=== PATIENT | female | born 1965 | race Caucasian/White ===

== ENCOUNTER 2019-06-15 21:09 | Emergency (ER) | payer BC ==
[~2019-06-15] VITALS: Ht 165.1 cm; Wt 95.2 kg
[~2019-06-15 21:09] MED LIST: HYDACE5 PO; IBUP600 PO; NAPR500ERA
[2019-06-16] MEDS ORDERED: Bactrim Ds Tab1 EACH PO (00:17)
== END 2019-06-16 00:40 | disposition home or self-care (01) ==
LOC: ER 21:09
DX: L05.01 Pilonidal cyst with abscess (principal); Z79.899 Other long term (current) drug therapy; Z79.891 Long term (current) use of opiate analgesic; F17.210 Nicotine dependence, cigarettes, uncomplicated
CPT/HCPCS: 10061; 99283-25

== ENCOUNTER 2019-07-30 00:16 | Day surgery (SDC) | payer BC ==
[~2019-07-30 00:16] MED LIST changes: +Bactrim Ds Tab1 EACH PO
== END 2019-07-30 16:42 | disposition home or self-care (01) ==
LOC: ATC 00:16
DX: K50.10 Crohn's disease of large intestine without complications (principal); Z79.899 Other long term (current) drug therapy; Z91.048 Other nonmedicinal substance allergy status; Z88.8 Allergy status to other drugs, medicaments and biological substances
CPT/HCPCS: 96413; 96415; A9270; J1745; J7050; Q0163

== ENCOUNTER 2019-08-29 15:05 | Emergency (ER) | payer BC ==
[~2019-08-29] VITALS: Ht 165.1 cm; Wt 96.6 kg
[2019-08-29] MEDS ORDERED: Bactrim Ds Tab1 EACH PO (17:00)
[2019-08-29] MEDS ORDERED: Roxicodone5 MG PO (17:00)
[2019-08-29] MEDS ORDERED: Keflex500 MG PO (17:00)
== END 2019-08-29 17:08 | disposition home or self-care (01) ==
LOC: ER 15:05
DX: L02.31 Cutaneous abscess of buttock (principal); L03.317 Cellulitis of buttock; F17.200 Nicotine dependence, unspecified, uncomplicated
CPT/HCPCS: 99283

== ENCOUNTER 2019-09-10 | Day surgery (SDC) | payer BC ==
[~2019-09-10] MED LIST changes: +Keflex500 MG PO; +Roxicodone5 MG PO
[2019-09-10] MEDS ORDERED: Remicade100 MG IV (14:16)
== END 2019-09-10 16:20 | disposition home or self-care (01) ==
LOC: ATC
DX: K50.10 Crohn's disease of large intestine without complications (principal); Z79.899 Other long term (current) drug therapy; Z91.048 Other nonmedicinal substance allergy status
CPT/HCPCS: 96413; 96415; A9270; J1745; J7050; Q0163

== ENCOUNTER 2019-10-22 00:06 | Day surgery (SDC) | payer BC ==
[~2019-10-22 00:06] MED LIST changes: +Remicade100 MG IV
[2019-10-22] MEDS ORDERED: LISI5 PO (14:00)
== END 2019-10-22 16:52 | disposition home or self-care (01) ==
LOC: ATC 00:06
DX: K50.10 Crohn's disease of large intestine without complications (principal); I10 Essential (primary) hypertension; L40.9 Psoriasis, unspecified; G40.909 Epilepsy, unspecified, not intractable, without status epilepticus; G89.29 Other chronic pain; M54.9 Dorsalgia, unspecified; F17.200 Nicotine dependence, unspecified, uncomplicated; Z91.048 Other nonmedicinal substance allergy status; Z79.899 Other long term (current) drug therapy
CPT/HCPCS: A9270; J1745; J7050; Q0163

== ENCOUNTER 2019-10-29 12:49 | Emergency (ER) | payer BC ==
[~2019-10-29] VITALS: Ht 165.1 cm; Wt 96.2 kg
[~2019-10-29 12:49] MED LIST changes: +LISI5 PO
[2019-10-29] MEDS ORDERED: CEPH500 PO (13:34)
[2019-10-29] MEDS ORDERED: Bactrim Ds Tab1 EACH PO (13:34)
== END 2019-10-29 14:14 | disposition home or self-care (01) ==
LOC: ER 12:49
DX: L02.11 Cutaneous abscess of neck (principal); Z79.899 Other long term (current) drug therapy; F17.200 Nicotine dependence, unspecified, uncomplicated
CPT/HCPCS: 10060; 99283-25

== ENCOUNTER → 2019-10-31 | Outpatient (CLI) | payer BC ==
[~2019-10-31] MED LIST changes: +CEPH500 PO; +LOSA25 PO
== END | disposition home or self-care (01) ==
LOC: LAB SHORT 14:50 → LAB EV 14:50
DX: L02.91 Cutaneous abscess, unspecified (principal)
CPT/HCPCS: 87070; 87077; 87186; 87205

== ENCOUNTER 2019-12-03 00:03 | Day surgery (SDC) | payer BC ==
[~2019-12-03 00:03] MED LIST changes: -LOSA25 PO
[2019-12-03] MEDS ORDERED: LOSA25 PO (14:13)
--- NOTE | 2019-12-10 09:30 | NUR ---
STOP TIME: STOP TIME OF REMICADE WAS 6972
== END 2019-12-03 16:54 | disposition home or self-care (01) ==
LOC: ATC 00:03
DX: K50.10 Crohn's disease of large intestine without complications (principal); L40.9 Psoriasis, unspecified; I10 Essential (primary) hypertension; G40.909 Epilepsy, unspecified, not intractable, without status epilepticus; G89.29 Other chronic pain; M54.9 Dorsalgia, unspecified; Z79.899 Other long term (current) drug therapy; Z90.710 Acquired absence of both cervix and uterus; Z91.048 Other nonmedicinal substance allergy status
CPT/HCPCS: 96413; 96415; J1745; J7050

== ENCOUNTER 2020-01-21 00:06 | Day surgery (SDC) | payer BC ==
[~2020-01-21 00:06] MED LIST changes: +LOSA25 PO
== END 2020-01-21 10:48 | disposition home or self-care (01) ==
LOC: ATC 00:06
DX: K50.10 Crohn's disease of large intestine without complications (principal); Z88.8 Allergy status to other drugs, medicaments and biological substances; F17.220 Nicotine dependence, chewing tobacco, uncomplicated
CPT/HCPCS: 96413; 96415; J1745; J7050

== ENCOUNTER 2020-06-02 00:38 | Day surgery (SDC) | payer BC | END 2020-06-02 10:42 | disposition home or self-care (01) | LOC: ATC 00:38 | DX: K50.10 Crohn's disease of large intestine without complications (principal); Z88.8 Allergy status to other drugs, medicaments and biological substances | CPT/HCPCS: 96413; 96415; J1745; J7050 ==

== ENCOUNTER 2020-07-22 00:14 | Day surgery (SDC) | payer BC | END 2020-07-22 12:31 | disposition home or self-care (01) | LOC: ATC 00:14 | DX: K50.10 Crohn's disease of large intestine without complications (principal); F17.200 Nicotine dependence, unspecified, uncomplicated; Z88.8 Allergy status to other drugs, medicaments and biological substances; Z79.899 Other long term (current) drug therapy | CPT/HCPCS: 96365; 96366; J1745; J7050 ==

== ENCOUNTER 2020-09-08 00:42 | Day surgery (SDC) | payer BC | END 2020-09-08 14:20 | disposition home or self-care (01) | LOC: ATC 00:42 | DX: K50.10 Crohn's disease of large intestine without complications (principal); Z88.8 Allergy status to other drugs, medicaments and biological substances | CPT/HCPCS: 96413; 96415; J1745; J7050 ==

== ENCOUNTER 2020-10-25 00:21 | Day surgery (SDC) | payer BC | END 2020-10-25 16:22 | disposition home or self-care (01) | LOC: ATC 00:21 | DX: K50.10 Crohn's disease of large intestine without complications (principal); I10 Essential (primary) hypertension; G40.909 Epilepsy, unspecified, not intractable, without status epilepticus; Z79.899 Other long term (current) drug therapy; Z91.048 Other nonmedicinal substance allergy status | CPT/HCPCS: 96413; 96415; J1745; J7050 ==

== ENCOUNTER 2020-12-06 00:18 | Day surgery (SDC) | payer BC, SELFPAY ==
--- NOTE | 2020-12-06 08:15 | NUR ---
PT TOOK OWN PRE-MEDICATIONS AT HOME.
== END 2020-12-06 10:33 | disposition home or self-care (01) ==
LOC: ATC 00:18
DX: K50.10 Crohn's disease of large intestine without complications (principal); L40.9 Psoriasis, unspecified; M19.90 Unspecified osteoarthritis, unspecified site; G40.909 Epilepsy, unspecified, not intractable, without status epilepticus; F17.290 Nicotine dependence, other tobacco product, uncomplicated; Z91.048 Other nonmedicinal substance allergy status; Z79.899 Other long term (current) drug therapy
CPT/HCPCS: 96413; 96415; J1745; J7050

== ENCOUNTER 2021-01-17 00:19 | Day surgery (SDC) | payer BC, SELFPAY ==
[2021-01-17] MEDS ORDERED: ACET325 PO (13:48)
[2021-01-17] MEDS ORDERED: MULVITA PO (13:49)
[2021-01-17] MEDS ORDERED: THERA-D2000 UNIT PO (13:49)
== END 2021-01-17 16:21 | disposition home or self-care (01) ==
LOC: ATC 00:19
DX: K50.10 Crohn's disease of large intestine without complications (principal); L40.9 Psoriasis, unspecified; M19.90 Unspecified osteoarthritis, unspecified site; F17.290 Nicotine dependence, other tobacco product, uncomplicated; Z91.09 Other allergy status, other than to drugs and biological substances; Z79.899 Other long term (current) drug therapy
CPT/HCPCS: 96413; 96415; A9270; J1745; J7050

== ENCOUNTER 2021-03-07 00:31 | Day surgery (SDC) | payer BC ==
[~2021-03-07 00:31] MED LIST changes: +ACET325 PO; +MULVITA PO; +THERA-D2000 UNIT PO
--- NOTE | 2021-03-07 14:52 | NUR ---
PT TOOK HER TYLENOL AT HOME PRIOR TO COMING INTO THE [facility] FOR HER REMICADE INFUSION. REC'D TELEPHONE ORDER FOR PT TO RECEIVE REMICADE DESPITE TAKING ANTIBIOTICS AT THIS TIME PER DR. SALDANA.
== END 2021-03-07 17:02 | disposition home or self-care (01) ==
LOC: ATC 00:31
DX: K50.10 Crohn's disease of large intestine without complications (principal); L40.9 Psoriasis, unspecified; M19.90 Unspecified osteoarthritis, unspecified site; F17.290 Nicotine dependence, other tobacco product, uncomplicated; Z91.09 Other allergy status, other than to drugs and biological substances; Z79.899 Other long term (current) drug therapy
CPT/HCPCS: 96413; 96415; A9270; J1745; J7050

== ENCOUNTER 2021-04-22 00:45 | Day surgery (SDC) | payer BC ==
[2021-04-22] MEDS ORDERED: GABA300 PO (08:21)
[2021-04-22] MEDS ORDERED: GABA300 (08:21)
== END 2021-04-22 11:23 | disposition home or self-care (01) ==
LOC: ATC 00:45
DX: K50.10 Crohn's disease of large intestine without complications (principal); F17.210 Nicotine dependence, cigarettes, uncomplicated; Z79.899 Other long term (current) drug therapy
CPT/HCPCS: 96413; 96415; J1745; J7050

== ENCOUNTER 2021-06-03 00:21 | Day surgery (SDC) | payer BC ==
[~2021-06-03 00:21] MED LIST changes: +GABA300; +GABA300 PO
== END 2021-06-03 10:55 | disposition home or self-care (01) ==
LOC: ATC 00:21
DX: K50.10 Crohn's disease of large intestine without complications (principal); F17.210 Nicotine dependence, cigarettes, uncomplicated
CPT/HCPCS: 96413; 96415; J1745; J7050

== ENCOUNTER 2021-07-27 00:46 | Day surgery (SDC) | payer BC, OTHER | END 2021-07-27 16:16 | disposition home or self-care (01) | LOC: ATC 00:46 | DX: K50.10 Crohn's disease of large intestine without complications (principal); F17.290 Nicotine dependence, other tobacco product, uncomplicated; M19.90 Unspecified osteoarthritis, unspecified site; Z79.899 Other long term (current) drug therapy; Z90.49 Acquired absence of other specified parts of digestive tract | CPT/HCPCS: 96413; 96415; J1745; J7050 ==

== ENCOUNTER 2021-09-05 02:40 | Day surgery (SDC) | payer BC ==
[~2021-09-05] VITALS: Wt 103.6 kg
== END 2021-09-05 11:10 | disposition home or self-care (01) ==
LOC: ATC 02:40
DX: K50.10 Crohn's disease of large intestine without complications (principal)
CPT/HCPCS: 96413; 96415

== ENCOUNTER 2021-12-09 05:51 | Day surgery (SDC) | payer BC ==
[~2021-12-09] VITALS: Wt 106.3 kg
== END 2021-12-09 15:36 | disposition home or self-care (01) ==
LOC: ATC 05:51
DX: K50.10 Crohn's disease of large intestine without complications (principal); F17.210 Nicotine dependence, cigarettes, uncomplicated; Z90.49 Acquired absence of other specified parts of digestive tract
CPT/HCPCS: J1745; J7050

== ENCOUNTER 2022-01-23 03:21 | Day surgery (SDC) | payer BC ==
[~2022-01-23] VITALS: Wt 108.1 kg
--- NOTE | 2022-01-23 13:15 | NUR ---
PT TOOK HER OWN TYLENOL AT HOME PRIOR TO COMING INTO THE [facility].
[2022-01-23] MEDS ORDERED: INFLECTRA100 MG IV (14:48)
== END 2022-01-23 15:59 | disposition home or self-care (01) ==
LOC: ATC 03:21
DX: K50.10 Crohn's disease of large intestine without complications (principal); Z88.8 Allergy status to other drugs, medicaments and biological substances
CPT/HCPCS: J7050; Q5103

== ENCOUNTER → 2022-02-13 | Outpatient (CLI) | payer BC ==
[~2022-02-13] MED LIST changes: +INFLECTRA100 MG IV
== END ==
LOC: LAB SHORT 18:28 → LAB 18:28
DX: D48.5 Neoplasm of uncertain behavior of skin (principal); D22.5 Melanocytic nevi of trunk; D22.62 Melanocytic nevi of left upper limb, including shoulder; L57.8 Other skin changes due to chronic exposure to nonionizing radiation; L40.0 Psoriasis vulgaris; L08.9 Local infection of the skin and subcutaneous tissue, unspecified; L73.2 Hidradenitis suppurativa; B35.3 Tinea pedis; Z71.89 Other specified counseling
CPT/HCPCS: 87070; 87077; 87147; 87186; 87205

== ENCOUNTER 2022-03-06 08:27 | Day surgery (SDC) | payer BC | END 2022-03-06 12:06 | disposition home or self-care (01) | LOC: LAB 08:27 | DX: K50.10 Crohn's disease of large intestine without complications (principal); F17.200 Nicotine dependence, unspecified, uncomplicated | CPT/HCPCS: 96413; 96415; A9270; J7050; Q5103 ==

== ENCOUNTER 2022-06-03 17:17 | Emergency (ER) | payer BC ==
[~2022-06-03] VITALS: Ht 165.1 cm; Wt 108.0 kg
== END 2022-06-03 22:15 | disposition home or self-care (01) ==
LOC: ER 17:17
DX: S52.532A Colles' fracture of left radius, initial encounter for closed fracture (principal); S52.612A Displaced fracture of left ulna styloid process, initial encounter for closed fracture; S00.03XA Contusion of scalp, initial encounter; S80.212A Abrasion, left knee, initial encounter; I10 Essential (primary) hypertension; R40.2413 Glasgow coma scale score 13-15, at hospital admission; F17.200 Nicotine dependence, unspecified, uncomplicated; Z79.899 Other long term (current) drug therapy; W18.30XA Fall on same level, unspecified, initial encounter
CPT/HCPCS: 73110; 73562-LT; 76000; A9270; J2405; J2704; J3010; J7030

== ENCOUNTER 2022-07-10 04:00 | Day surgery (SDC) | payer BC | END 2022-07-10 10:18 | disposition home or self-care (01) | LOC: ATC 04:00 | DX: K50.10 Crohn's disease of large intestine without complications (principal) | CPT/HCPCS: 96413; 96415; J7050; Q5103 ==

== ENCOUNTER 2022-09-11 01:11 | Day surgery (SDC) | payer BC | END 2022-09-11 12:03 | disposition home or self-care (01) | LOC: ATC 01:11 | DX: K50.10 Crohn's disease of large intestine without complications (principal); M19.90 Unspecified osteoarthritis, unspecified site; Z91.048 Other nonmedicinal substance allergy status; Z88.8 Allergy status to other drugs, medicaments and biological substances | CPT/HCPCS: J7050; Q5103 ==

== ENCOUNTER 2022-10-20 00:12 | Day surgery (SDC) | payer BC ==
[~2022-10-20] VITALS: Wt 104.5 kg
== END 2022-10-20 17:06 | disposition home or self-care (01) ==
LOC: ATC 00:12
DX: K50.10 Crohn's disease of large intestine without complications (principal); M19.90 Unspecified osteoarthritis, unspecified site; F17.200 Nicotine dependence, unspecified, uncomplicated; Z91.048 Other nonmedicinal substance allergy status; Z88.8 Allergy status to other drugs, medicaments and biological substances
CPT/HCPCS: J7050; Q5103

== ENCOUNTER 2022-12-08 02:18 | Day surgery (SDC) | payer BC | END 2022-12-08 17:15 | disposition home or self-care (01) | LOC: ATC 02:18 | DX: K50.10 Crohn's disease of large intestine without complications (principal) | CPT/HCPCS: J7050; Q5103 ==

== ENCOUNTER 2023-04-13 03:37 | Day surgery (SDC) | payer BC ==
[~2023-04-13] VITALS: Wt 103.9 kg
[2023-04-13 14:29] VITALS: BP 126/81
== END 2023-04-13 16:59 | disposition home or self-care (01) ==
LOC: ATC 03:37
DX: K50.10 Crohn's disease of large intestine without complications (principal); Z88.9 Allergy status to unspecified drugs, medicaments and biological substances; Z91.048 Other nonmedicinal substance allergy status
CPT/HCPCS: J7050; Q5103

== ENCOUNTER 2023-07-17 02:14 | Day surgery (SDC) | payer BC ==
[2023-07-17 09:06] VITALS: BP 154/93
== END 2023-07-17 12:02 | disposition home or self-care (01) ==
LOC: ATC 02:14
DX: K50.10 Crohn's disease of large intestine without complications (principal)
CPT/HCPCS: 96413; 96415; J7050; Q5103

== ENCOUNTER 2023-09-03 00:09 | Day surgery (SDC) | payer BC ==
[2023-09-03 13:50] VITALS: BP 133/91
== END 2023-09-03 16:37 | disposition home or self-care (01) ==
LOC: ATC 00:09
DX: K50.10 Crohn's disease of large intestine without complications (principal)
CPT/HCPCS: 96413; 96415; J7050; Q5103

== ENCOUNTER 2023-10-19 09:25 | Day surgery (SDC) | payer BC ==
[2023-10-19 13:38] VITALS: BP 131/98
== END 2023-10-19 16:27 | disposition home or self-care (01) ==
LOC: ATC 09:25
DX: K50.10 Crohn's disease of large intestine without complications (principal)
CPT/HCPCS: 96413; 96415; J7050; Q5103

== ENCOUNTER 2023-12-21 00:17 | Day surgery (SDC) | payer BC ==
[2023-12-21 13:34] VITALS: BP 166/96
== END 2023-12-21 16:11 | disposition home or self-care (01) ==
LOC: ATC 00:17
DX: K50.10 Crohn's disease of large intestine without complications (principal); R56.9 Unspecified convulsions; L40.9 Psoriasis, unspecified
CPT/HCPCS: 96413; 96415; J7050; Q5103

== ENCOUNTER 2024-03-17 05:06 | Day surgery (SDC) | payer BC ==
[~2024-03-17] VITALS: Wt 107.7 kg
[2024-03-17 08:09] VITALS: BP 155/105
[2024-03-17] MEDS ORDERED: Infliximab-DYYB 500 MG in NS 250 ML IV SCH (08:10)
== END 2024-03-17 10:42 | disposition home or self-care (01) ==
LOC: ATC 05:06
DX: K50.10 Crohn's disease of large intestine without complications (principal)
CPT/HCPCS: 96413; 96415; J7050; Q5103

== ENCOUNTER 2024-09-05 03:05 | Day surgery (SDC) | payer BC ==
[~2024-09-05] VITALS: Wt 106.8 kg
[2024-09-05 15:04] VITALS: BP 168/105
[2024-09-05] MEDS ORDERED: Infliximab-DYYB 500 MG in NS 250 ML IV SCH (15:15)
== END 2024-09-05 17:42 | disposition home or self-care (01) ==
LOC: ATC 03:05
DX: K50.10 Crohn's disease of large intestine without complications (principal)
CPT/HCPCS: 96413; 96415; J7050; Q5103

== ENCOUNTER 2024-11-04 03:26 | Day surgery (SDC) | payer BC ==
[2024-11-04] MEDS ORDERED: Acetaminophen 325 MG TABLET PO SCH (07:25)
[2024-11-04] MEDS ORDERED: Infliximab-DYYB 500 MG in NS 250 ML IV SCH (14:05)
== END 2024-11-04 16:30 | disposition home or self-care (01) ==
LOC: ATC 03:26
DX: K50.10 Crohn's disease of large intestine without complications (principal); F17.200 Nicotine dependence, unspecified, uncomplicated; Z79.899 Other long term (current) drug therapy; Z90.710 Acquired absence of both cervix and uterus; Z90.49 Acquired absence of other specified parts of digestive tract
CPT/HCPCS: 96413; 96415; J7050; Q5103